=== PATIENT | female | born 1975 | race American Indian/Alaskan Native ===

== ENCOUNTER 2018-06-07 22:32 | Emergency (ER) | payer OTHER ==
[2018-06-07 23:05] VITALS: BP 142/99
[2018-06-07] MEDS ORDERED: ASPIRIN PO ONE (23:15)
[2018-06-07 23:49] LABS: Basophils % (Auto) 0.2 % (0.0-1.8); Eosinophils % (Auto) 0.3 % (0.0-4.3); Hematocrit 40.3 % (30.3-42.9); Hemoglobin 13.1 gm/dl (10.1-14.3); Lymphocytes % (Auto) 20.8 % (13.4-35.0); Mean Corpuscular HGB Conc 33 % (30-34); Mean Corpuscular Volume 84 fl (79-97); Monocytes # (Auto) 0.5 K/mm3 (0.0-0.8); Monocytes % (Auto) 5.7 % (0.0-7.3); Platelet Count 298 K/mm3 (140-440); Red Blood Count 4.78 M/mm3 (3.65-5.03); Red Cell Distribution Width 19.3 % (13.2-15.2)
[2018-06-08 00:15] LABS: BUN/Creatinine Ratio 16; Blood Urea Nitrogen 13 mg/dL (7-17); Calcium 9.8 mg/dL (8.4-10.2); Hemolysis Index 39
--- NOTE | 2018-06-08 00:36 | XRay Report ---
PROCEDURE: XR CHEST 1V AP TECHNIQUE: Chest radiograph single view. HISTORY: Chest Pain COMPARISONS: 01/07/2018 FINDINGS: Heart: Normal. Mediastinum/Vessels: Normal. Lungs/Pleural space: Normal. Bony thorax: No acute osseous abnormality. Life support devices: None. IMPRESSION: No acute cardiopulmonary abnormality. This document is electronically signed by Clifford Hernandez MD., June 08 2018 12:34:13 AM ET
--- NOTE | 2018-06-08 03:41 | Emergency Department Report ---
HPI - General Chief Complaint: Chest Pain Time Seen by Provider: 06/07/18 23:55 - HPI HPI: This is a 42-year-old -[place] female who presents to the ED with tachycardia, palpitations feeling. 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 Has had prior episodes of tachycardia, she tried to bear down, she tried to calm herself down, with no relief. EMS was called, when the arrived at the scene, patient heart rate was in 180. SVT. She was given adenosine 6 mg with relief of her symptoms. She is at prior SVT, and is on metoprolol 50 mg by mouth twice a day for these symptoms. He has appropriate cardiology follow-up. ED Past Medical Hx - Past Medical History Previous Medical History?: Yes Hx Hypertension: Yes Additional medical history: SVT, IBS, uterine fibroids - Surgical History Past Surgical History?: No - Social History Smoking Status: Never Smoker Substance Use Type: Alcohol - Medications Home Medications: Home Medications Medication Instructions Recorded Confirmed Last Taken Type Metoprolol [Lopressor TAB] 50 mg PO BID #60 tablet 05/16/14 01/07/18 01/07/18 Rx Clindamycin [Clindamycin CAP] 150 mg PO QID 12/24/17 01/07/18 01/06/18 History 1 amLODIPine [Norvasc] 10 mg PO DAILY 12/24/17 01/07/18 01/07/18 History Dicyclomine HCl 10 mg PO TID 01/07/18 01/07/18 01/02/18 History ED Review of Systems ROS: Stated complaint: SVT Other details as noted in HPI Comment: All other systems reviewed and negative Constitutional: denies: chills Eyes: denies: eye pain ENT: denies: ear pain Respiratory: denies: cough Cardiovascular: chest pain, palpitations. denies: dyspnea on exertion Gastrointestinal: denies: abdominal pain, nausea, vomiting Physical Exam - Physical Exam Vital Signs: Vital Signs 06/07/18 06/08/18 06/08/18 23:02 00:14 00:42 Temperature 98.3 F Pulse Rate 99 H 84 Respiratory 16 20 22 Rate Blood Pressure 142/99 [Left] O2 Sat by Pulse 96 98 Oximetry Physical Exam: Physical Exam: - General Limitations: No Limitations General appearance: alert, in no apparent distress. - Head Head exam: Present: atraumatic, normocephalic - Eye Eye exam: Present: normal appearance - ENT ENT exam: Present: mucous membranes moist - Neck Neck exam: Present: normal inspection - Respiratory Respiratory exam: Present: normal lung sounds bilaterally. Absent: respiratory distress - Cardiovascular Cardiovascular Exam: Present: normal rhythm. Absent: systolic murmur, diastolic murmur, rubs, gallop - GI/Abdominal GI/Abdominal exam: Present: soft, normal bowel sounds - Extremities Exam Extremities exam: Present: normal inspection - Back Exam Back exam: Present: normal inspection - Neurological Exam Neurological exam: Present: alert, oriented X3 - Psychiatric Psychiatric exam: normal affect and mood - Skin Skin exam: Present: warm, dry, intact, normal color. Absent: rash ED Course Vital Signs 06/07/18 06/08/18 06/08/18 23:02 00:14 00:42 Temperature 98.3 F Pulse Rate 99 H 84 Respiratory 16 20 22 Rate Blood Pressure 142/99 [Left] O2 Sat by Pulse 96 98 Oximetry ED Medical Decision Making - Lab Data Result diagrams: 06/07/18 23:41 06/07/18 23:41 - EKG Data 06/08/18 03:45 Sinus rhythm heart rate 82, normal P wave normal QRS - Medical Decision Making This is a 42-year-old -[place] female who presents to the ED with tachycardia, palpitations feeling. 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 Has had prior episodes of tachycardia, she tried to bear down, she tried to calm herself down, with no relief. EMS was called, when the arrived at the scene, patient heart rate was in 180. SVT. She was given adenosine 6 mg with relief of her symptoms. She is at prior SVT, and is on metoprolol 50 mg by mouth twice a day for these symptoms. He has appropriate cardiology follow-up. EKG in the ED showed sinus rhythm, rate of 82, normal P waves, normal QRS. Patient feels much better wants to go home. Advised to follow up with PCP, follow-up with cardio, she reports understanding. Advised to return to ED if symptoms worsen, if symptoms returns. - Differential Diagnosis SVT, angina, palpitations Critical care attestation.: If time is entered above; I have spent that time in minutes in the direct care of this critically ill patient, excluding procedure time. ED Disposition Clinical Impression: SVT (supraventricular tachycardia) Disposition: TO HOME OR SELFCARE Is pt being admited?: No Does the pt Need Aspirin: No Condition: Stable Referrals: MANISH BERUMEN MD [Primary Care Provider] - 3-5 Days
== END 2018-06-08 04:00 | disposition home or self-care (01) ==
LOC: ED 22:32
DX: I47.1 Supraventricular tachycardia (principal); I10 Essential (primary) hypertension; Z91.040 Latex allergy status; Z88.0 Allergy status to penicillin
CPT/HCPCS: 36415; 71045; 80048; 84484; 85025; 93005; 93010